=== PATIENT | male | born 1945 | race Caucasian/White ===

== ENCOUNTER 2025-03-26 12:09 | Day surgery (SDC) | payer MEDICARE, OTHER ==
[2025-03-19 15:00] LABS: MEAN PLATELET VOLUME 7.2 FL (7.4-10.4); PRE OP HEMATOCRIT 45.9 % (42.0-52.0); PRE OP HEMOGLOBIN 15.3 g/dL (14.0-17.9); PRE OP PLATELET COUNT 176 X10'3 (140-440); PRE OP WHITE BLOOD COUNT 6.9 10'3 (4.8-10.8); RED CELL DISTRIBUTION WIDTH 14.5 % (11.5-14.5)
[2025-03-19 15:37] LABS: CREATININE 1.12 MG/DL (0.60-1.10); PRE OP ALT 31 U/L (30-65); PRE OP ANION GAP 5 (8-16); PRE OP AST 25 U/L (10-37); PRE OP BILIRUB, TOTAL 0.6 MG/DL (0.0-1.0); PRE OP GLUCOSE 98 MG/DL (70-104); PRE OP POTASSIUM 4.0 MMOL/L (3.4-5.1); PRE OP SODIUM 143 MMOL/L (135-145); TOTAL CARBON DIOXIDE 31.6 MMOL/L (24-32); eGFR 63 ML/MIN
[2025-03-26] VITALS (14 sets, daily range): BP systolic 107–146; BP diastolic 61–93; PULSE 56–73; RESP 11–19; TEMP 97.4; O2SAT 92–98
[~2025-03-26] VITALS: Ht 167.6 cm; Wt 79.0 kg
[2025-03-26] MEDS: ceFAZolin 2gm/dext,iso 50mL 50 ML IV ONE (05:30)
[~2025-03-26 12:09] MED LIST: ASPI-1071 PO; CHOL500044 PO; EZET10TA6 PO; MAGN120C3 PO; OMEG100037 PO; OMEP20CA15 PO; ROSU40TA89 PO
[2025-03-26] MEDS: ringers solution, lacted 1,000 ML IV SCH (12:57)
[2025-03-26] MEDS ORDERED: morphine 4 MG/ML inj SYRINge IV PRN (13:40)
[2025-03-26] MEDS ORDERED: HYDROmorphone/PF 0.2 MG/ML SYRINGE IV PRN ×2 (13:40)
[2025-03-26] MEDS ORDERED: labetalol 20mg/4ml (5mg/ml) syringe IV PRN (13:40)
[2025-03-26] MEDS ORDERED: enalaprilat 1.25mg/ml 2ml vial IV PRN (13:40)
[2025-03-26] MEDS ORDERED: ondansetron/PF 4mg/2ml inj IV PRN (13:40)
[2025-03-26] MEDS ORDERED: fentaNYL/PF 50MCG/1 ML 2ML syringe IV PRN ×2 (13:40)
[2025-03-26] MEDS ORDERED: ringers solution, lacted 1,000 ML IV SCH (13:40)
[2025-03-26] MEDS ORDERED: LIDOcaine 1% 30ml preserv. free vial ONE (14:24)
[2025-03-26] MEDS ORDERED: BUPIVAcaine/PF 2.5mg/ml (0.25%) 10ml vial ONE (14:24)
[2025-03-26] MEDS ORDERED: glycopyrrolate 0.2mg/ml inj ONE (14:28)
[2025-03-26] MEDS ORDERED: midazolam 1 mg/ML 2ml injection ONE (14:38)
[2025-03-26] MEDS ORDERED: fentaNYL/PF 50MCG/1 ML 2ML syringe ONE (14:38)
[2025-03-26] MEDS ORDERED: propofol inj 20 ML IV ONE (14:40)
[2025-03-26] MEDS ORDERED: LIDOcaine 1%/PF 5ML 10 MG/ML VIAL ONE (14:40)
[2025-03-26] MEDS ORDERED: rocuronium 10mg/ml inj IV ONE (14:54)
[2025-03-26] MEDS ORDERED: ondansetron/PF 4mg/2ml inj ONE (14:54)
[2025-03-26] MEDS ORDERED: dexamethasone sod phosphate 4mg/ml inj. ONE (14:54)
[2025-03-26] MEDS ORDERED: acetaminophen 1,000mg/100ml IV 100 ML IV ONE (14:54)
[2025-03-26] MEDS: BUPIVAcaine/PF 2.5 mg/ml (0.25%) 30ml vial IJ ONE (14:57)
[2025-03-26] MEDS: LIDOcaine 1% 30ml preserv. free vial IJ ONE (14:57)
[2025-03-26] MEDS ORDERED: HYDROcodone/acetaminophen 5mg/325mg tablet PO PRN (16:25)
--- NOTE | 2025-03-26 16:25 | OPERATIVE REPORT ---
Operative Report Providers to CC: ERIC AIKEN MD ~ Date of Procedure: Mar 26, 2025 Pre-Operative Diagnosis: Left inguinal hernia Post-Operative Diagnosis SAME as PRE-Op Procedure Performed Robotic assisted, laparoscopic indirect left inguinal hernia repair with mesh Surgeon: Eric Aiken MD FACS Director Consumer Affairs None Anesthesiologist: Gui Brewer Type of Anesthesia: General Findings: Very small indirect left inguinal hernia Complications None Prosthetics\Implants used: Large left Dextile mesh Estimated Blood Loss: Minimal Specimen Removed: None Description of Procedure: Patient was brought to the operating room and identified by the nursing staff an d the attending physician. Patient was placed supine and general anesthesia was induced. Patient's abdomen was prepped and draped in standard sterile fashion. Preoperative antibiotics were given. Supraumbilical incision was made to allow for standard [place] entry technique. Laparoscope was inserted after insufflation. Bilateral, 8.5 mm robotic trochars were placed under laparoscopic guidance following administration of local anesthetic. The [employer] robotic arm was docked to the patient and instruments placed intra-abdominally under laparoscopic visualization. The right hemipelvis was examined and showed no evidence of right inguinal hernia. An indirect inguinal hernia was identified on the left side. Hernia sac was very small in size. A rent was created in the peritoneum from the median umbilical fold and carried out laterally towards the anterior superior iliac spine. Preperitoneal flap was created and carried down to the symphysis pubis. The retropubic space of [place] was developed and the bladder swept medially. Dissection was carried out laterally until an indirect hernia sac was identified. This was very small in size. Hernia sac was completely dissected away from the cord structures and reduced. The critical view of the myopectineal orifice was achieved. Dissection was carried out laterally to allow space for mesh deployment. A large Dextile mesh and suture was passed intra-abdominally. Mesh was laid in the preperitoneal space covering both indirect, direct, and potential femoral and obturator hernias. Mesh laid without wrinkles or folds. 3 tacking sutures using 0 Ethibond were used to fix the mesh at the symphysis pubis, rectus abdominis, and just anterior to the anterior superior iliac spine. The peritoneal rent was then closed with running, 2/0, absorbable locking suture. [place] were retrieved. Abdomen was deflated and secondary trochars removed. Fascia at the umbilical port site was closed with 0 Vicryl sutures. Skin incisions were closed with 4-0 Monocryl sutures in a subcuticular fashion. Sterile dressings were applied. Patient was awakened and taken to the postanesthesia care unit in stable condition. Counts repoted as correct: Yes ERIC AIKEN MD Mar 26, 2025 16:25
== END 2025-03-26 18:27 | disposition home or self-care (01) ==
LOC: PAS 12:09
PROVIDERS: ATTEND Surgery
DX: K40.90 Unilateral inguinal hernia, without obstruction or gangrene, not specified as recurrent (principal); E78.5 Hyperlipidemia, unspecified; K21.9 Gastro-esophageal reflux disease without esophagitis; I25.10 Atherosclerotic heart disease of native coronary artery without angina pectoris; Z98.890 Other specified postprocedural states; I25.2 Old myocardial infarction; Z79.82 Long term (current) use of aspirin; Z79.899 Other long term (current) drug therapy; Z95.5 Presence of coronary angioplasty implant and graft
CPT/HCPCS: 36415; 49650; 80053; 82948; 85025; A4215; A4618; C1781; J0131; J1100; J2003; J2250; J2405; J2704; J2710; J3010; J3490; J7030; J7120; Z7506; Z7508; Z7512; Z7610